=== PATIENT | female | born 2005 | race Hispanic/Latino ===

== ENCOUNTER 2025-06-09 01:50 | Inpatient (IN) | payer OTHER, SELFPAY ==
[2025-06-09 02:09] VITALS: BMI 26.4
[2025-06-09] MEDS ORDERED: hydrALAZINE 20 MG/ML VIAL SLOW IVP PRN ×2 (03:09→14:18)
[2025-06-09 03:41] LABS: #Basophils 0.03 10x3/uL (0.0-0.2); #Eosinophils 0.13 10x3/uL (0.0-0.5); #Monocytes 0.72 10x3/uL (0.0-1.1); #Neutrophils 8.36 10x3/uL (1.5-8.4); %Basophils 0.2 % (0.0-2.0); %Eosinophils 1.1 % (0.0-6.0); %Lymphocytes 23.5 % (18.0-47.0); %Monocytes 5.9 % (0.0-10.0); %Neutrophils 68.6 % (40.0-75.0); Hematocrit 33.9 % (34.9-44.5); Hemoglobin 10.7 g/dL (12.0-15.5); Mean Corpuscular Hemoglobin 24.5 pg (27.0-33.0); Mean Corpuscular Volume 77.8 fL (81.6-98.3); Platelet Count 218 10x3/uL (150-450); Red Blood Cell (RBC) Count 4.36 10x6/uL (3.90-5.03); White Blood Cell (WBC) Count 12.19 10x3/uL (3.5-10.5)
[2025-06-09 03:58] LABS: ALT (SGPT) 10 U/L (Less than 34); AST (SGOT) 22 U/L (11-34); Albumin 2.7 g/dL (3.1-4.5); Alkaline Phosphatase 117 U/L (40-110); Anion Gap 16 mmol/L (10-20); BUN (Urea Nitrogen) 5 mg/dL (7.0-18.7); Bilirubin, Total 0.2 mg/dL (0.3-1.2); Calc. Creatinine Clearance 176 mL/min (70-130); Calcium 8.5 mg/dL (7.8-10.44); Carbon Dioxide 18 mmol/L (22-29); Chloride 108 mmol/L (98-107); Globulin 3.7 g/dL (2.4-3.5); Glucose 104 mg/dL (70-105); Potassium 3.9 mmol/L (3.5-5.1); Sodium 138 mmol/L (136-145)
[2025-06-09] MEDS ORDERED: Carboprost 250 MCG/ML AMP IM PRN (04:47)
[2025-06-09] MEDS ORDERED: Tranexamic Acid 1,000 MG/10 ML VIAL IVP PRN (04:47)
[2025-06-09] MEDS ORDERED: Diphenoxylate HCl/Atropine Tablet PO PRN ×3 (04:47→05:08)
[2025-06-09] MEDS ORDERED: Methylergonovine 0.2 MG/ML VIAL IM PRN ×2 (04:47→14:18)
[2025-06-09] MEDS ORDERED: Ondansetron PF 4 MG/2 ML Vial IVP PRN ×5 (04:47→14:18)
[2025-06-09] MEDS ORDERED: Oxytocin 30 units/NS 500 ML 500 ML IV SCH ×2 (05:00→14:18)
[2025-06-09] MEDS ORDERED: Famotidine/PF 20 mg/2ml Vial SLOW IVP PRN (05:08)
[2025-06-09] MEDS ORDERED: Bicitra 30 ML UDCUP PO PRN (05:08)
[2025-06-09 05:27] LABS: Hep B Surf Ag - L&D Non-Reactive S/CO (NonReactive)
[2025-06-09 05:29] LABS: Syphilis Antibody Index 0.05 S/CO (<1.00 Non-Reactive)
[2025-06-09 11:59] LABS: Analyzer IN Cardio CS NICU; pH (Cord, venous) 7.341 (7.250-7.350)
[2025-06-09] MEDS ORDERED: diphenhydrAMINE 50 MG/ML VIAL IVP PRN (12:06)
[2025-06-09] MEDS ORDERED: Meperidine HCl/PF 25 MG (1 mL) VIAL SLOW IVP PRN (12:06)
[2025-06-09] MEDS ORDERED: Communication Order-Pharmacy FS SCH (12:15)
[2025-06-09] MEDS: Ketorolac Tromethamine 30 MG (1 mL) VIAL IVP SCH (13:02)
[2025-06-09] MEDS ORDERED: Simethicone Chewable 80 MG TAB PO PRN (14:18)
[2025-06-09] MEDS ORDERED: Lanolin Ointment 7 GM TUBE TOP PRN (14:18)
[2025-06-09] MEDS ORDERED: Bisacodyl 10 MG SUPP PR PRN (14:18)
[2025-06-09] MEDS ORDERED: diphenhydrAMINE 25 MG CAP PO PRN (14:18)
[2025-06-09] MEDS ORDERED: Acetaminophen 325 MG TAB PO PRN (14:18)
[2025-06-09] MEDS: Oxytocin 10 UNITS/ML VIAL ONE (14:24)
[2025-06-09] MEDS: PHENYLEPHRINE-NS 100 MCG/ML 10 ML SYRINGE ONE (14:24)
[2025-06-09] MEDS: Dexamethasone 10 MG/ML VIAL ONE (14:24)
[2025-06-09] MEDS: Ketorolac Tromethamine 30 MG (1 mL) VIAL IVP PRN (19:26)
[2025-06-10] MEDS: Ferrous Sulfate 325 MG TAB PO SCH (02:28)
[2025-06-10] MEDS ORDERED: Benzocaine/Menthol 1 LOZ LOZ PO PRN (02:44)
[2025-06-10] MEDS: Benzocaine 20% Spray 60 ML CAN PO SCH (03:54)
[2025-06-10 05:42] LABS: Hematocrit 25.7 % (34.9-44.5); Hemoglobin 8.0 g/dL (12.0-15.5); Mean Corpuscular Hemoglobin 24.4 pg (27.0-33.0); Mean Corpuscular Volume 78.4 fL (81.6-98.3); Platelet Count 173 10x3/uL (150-450); Red Blood Cell (RBC) Count 3.28 10x6/uL (3.90-5.03); White Blood Cell (WBC) Count 15.31 10x3/uL (3.5-10.5)
[2025-06-10] MEDS: HYDROcodone/Acetaminophen 5/325 mg Tablet PO PRN (06:40)
[2025-06-10 09:42] LABS: Platelet Count 187.0 10x3/uL (150-450)
[2025-06-10 09:57] LABS: D-Dimer Test 3.05 mcg/mL (0.19-0.50); Fibrinogen 540.0 mg/dL (220-504); INR-International Normal Ratio 0.9; PTT 24.3 sec (22.0-33.0); Prothrombin Time 10.1 sec (9.5-12.1)
[2025-06-10] MEDS: Sodium Ferric Gluconate 250 MG in Sodium Chloride 0.9% 250 ML 250 ML IVPB SCH (12:08)
[2025-06-10] MEDS: Ibuprofen 800 MG TAB PO SCH (14:03)
[2025-06-10 15:19] LABS: Group B Streptococcus by PCR Not Detected (NotDetected)
[2025-06-10 16:01] LABS: Hematocrit 32.7 % (34.9-44.5); Hemoglobin 10.2 g/dL (12.0-15.5); Mean Corpuscular Hemoglobin 24.8 pg (27.0-33.0); Mean Corpuscular Volume 79.6 fL (81.6-98.3); Platelet Count 200 10x3/uL (150-450); Red Blood Cell (RBC) Count 4.11 10x6/uL (3.90-5.03); White Blood Cell (WBC) Count 17.26 10x3/uL (3.5-10.5)
[2025-06-11] MEDS: HYDROcodone/Acetaminophen 5/325 mg Tablet PO PRN (15:27)
[2025-06-12 07:55] VITALS: BP 125/83; TEMP 98.5
[2025-06-12 10:10] LABS: #Basophils 0.03 10x3/uL (0.0-0.2); #Eosinophils 0.37 10x3/uL (0.0-0.5); #Monocytes 0.87 10x3/uL (0.0-1.1); #Neutrophils 11.14 10x3/uL (1.5-8.4); %Basophils 0.2 % (0.0-2.0); %Eosinophils 2.4 % (0.0-6.0); %Lymphocytes 18.2 % (18.0-47.0); %Monocytes 5.6 % (0.0-10.0); %Neutrophils 72.4 % (40.0-75.0); Hematocrit 27.3 % (34.9-44.5); Hemoglobin 8.4 g/dL (12.0-15.5); Mean Corpuscular Hemoglobin 24.6 pg (27.0-33.0); Mean Corpuscular Volume 79.8 fL (81.6-98.3); Platelet Count 208 10x3/uL (150-450); Red Blood Cell (RBC) Count 3.42 10x6/uL (3.90-5.03); White Blood Cell (WBC) Count 15.40 10x3/uL (3.5-10.5)
[2025-06-12 10:36] LABS: Troponin I Less than 0.010 ng/mL (< 0.028)
[2025-06-12 16:11] LABS: Free T4 (Free Thyroxine) 0.78 ng/dL (0.70-1.48)
== END 2025-06-12 17:35 | disposition home or self-care (01) | DRG 787 ==
LOC: CSHLD/OP 01:50 → CSHLD 04:43 → CSHPP 14:10
PROVIDERS: ADMIT Student in an Organized Health Care Education/Training Program; ATTEND Student in an Organized Health Care Education/Training Program
PROC: 10D00Z1 Extraction of Products of Conception, Low, Open Approach (ICD-10-PCS; principal; 2025-06-09)
DX: O32.1XX0 Maternal care for breech presentation, not applicable or unspecified (principal); O72.1 Other immediate postpartum hemorrhage; Z3A.38 38 weeks gestation of pregnancy; Z37.0 Single live birth; O75.4 Other complications of obstetric surgery and procedures
CPT/HCPCS: 36415; 36416; 51702; 80053; 82805; 83880; 84439; 84443; 84481; 84484; 85025; 85027; 85049; 85300; 85362; 85384; 85610; 85730; 86780; 86850; 86900; 86901; 87340; 87653; 93005; 93010; 99285; J1100; J1885; J2250; J2274; J2590; J2916; J3010; J7050; J7120